=== PATIENT | female | born 1980 | race Caucasian/White ===

== ENCOUNTER 2018-04-23 00:27 | Emergency (ER) | payer OTHER ==
[2018-04-23 00:35] VITALS: TEMP 98.8
[2018-04-23] MEDS ORDERED: DIPH,PERTUS(ACELL)TETVAC-LF 0.5 ML VIAL IM ONE (01:03)
[2018-04-23] MEDS ORDERED: IBUPROFEN 600 MG TAB PO STA (01:03)
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
[2018-04-23] MEDS ORDERED: LIDOCAINE 1% INJ 10MG/ML (20 ML MDV) SQ ONE (02:40)
[2018-04-23 03:37] VITALS: BP 112/74; PULSE 76; RESP 16
== END 2018-04-23 03:37 | disposition home or self-care (01) ==
LOC: EC 00:27
DX: S01.01XA Laceration without foreign body of scalp, initial encounter (principal); S63.501A Unspecified sprain of right wrist, initial encounter; M54.2 Cervicalgia; E03.9 Hypothyroidism, unspecified; F31.9 Bipolar disorder, unspecified; F41.0 Panic disorder [episodic paroxysmal anxiety]; F43.10 Post-traumatic stress disorder, unspecified; F17.200 Nicotine dependence, unspecified, uncomplicated; Z53.29 Procedure and treatment not carried out because of patient's decision for other reasons; Z23 Encounter for immunization; Z79.899 Other long term (current) drug therapy; Z88.8 Allergy status to other drugs, medicaments and biological substances; Y09 Assault by unspecified means; Y92.009 Unspecified place in unspecified non-institutional (private) residence as the place of occurrence of the external cause
CPT/HCPCS: 70450; 72125; 90471; 90715; 99284

== ENCOUNTER 2021-01-03 02:50 | Emergency (ER) | payer OTHER ==
[2021-01-03 02:56] VITALS: BP 121/84; PULSE 116; RESP 18; TEMP 97.3
--- NOTE | 2021-01-03 03:00 | ED ---
Overdose HPI - General Chief Complaint: Overdose Stated Complaint: Overdose Time Seen by Provider: 01/03/21 02:59 Source: patient, EMS, RN notes reviewed, old records reviewed Mode of arrival: EMS Limitations: no limitations - History of Present Illness Initial Comments: This is a 40-year-old female DF for evaluation, patient brought in by EMS for opiate overdose requiring Narcan. Patient states she did snort heroin. She denies homicidal or suicidal thoughts. Denies any other drug or alcohol abuse. Boyfriend is at bedside MD Complaint: accidental overdose -: minutes(s) Intent: unwilling to say How Overdose Was Discovered: family/friend present at time Context: Intentional Overdose: drug/ETOH problems Context: Accidental Overdose: wanted to get high Treatments Prior to Arrival: narcan - Related Data Home Medications Medication Instructions Recorded Confirmed Gabapentin [Neurontin] 300 mg PO BID@0800,1400 06/01/17 06/01/17 Gabapentin [Neurontin] 600 mg PO HS 06/01/17 06/01/17 Levothyroxine Sodium [Synthroid] 75 mcg PO DAILY 06/01/17 06/01/17 QUEtiapine FUMARATE [SEROquel] 600 mg PO HS 06/01/17 06/01/17 busPIRone HCL 15 mg PO BID@0800,1400 06/01/17 06/01/17 busPIRone HCL 30 mg PO HS 06/01/17 06/01/17 Allergies Allergy/AdvReac Type Severity Reaction Status Date / Time carbamazepine [From Tegretol] Allergy Rash/Hives Verified 06/01/17 18:20 divalproex sodium Allergy Rash/Hives Verified 06/01/17 18:20 [From Depakote] Review of Systems ROS Statement: Those systems with pertinent positive or pertinent negative responses have been documented in the HPI. ROS Other: All systems not noted in ROS Statement are negative. Past Medical History Past Medical History: Asthma, Thyroid Disorder Additional Past Medical History / Comment(s): Hypothyroidism, vitamin D deficiency History of Any Multi-Drug Resistant Organisms: None Reported Past Surgical History: No Surgical Hx Reported Past Anesthesia/Blood Transfusion Reactions: No Reported Reaction Past Psychological History: Anxiety, Bipolar, Depression, Panic Disorder, PTSD Smoking Status: Current every day smoker Past Alcohol Use History: None Reported Past Drug Use History: Heroin, Marijuana - Past Family History Father Family Medical History: Hypertension Additional Family Medical History / Comment(s): Father is alive at age 56 with history of hypertension. Paternal grandmother had diabetes. Mother Additional Family Medical History / Comment(s): Mother is alive at age 55 with history of bipolar disorder with crack abuse and alcohol abuse. Brother(s) Additional Family Medical History / Comment(s): Patient has one brother with scoliosis. Patient has one sister that have some type of tumors but does not know details as she has not talked to her in 2 years. Patient has one son that is 17 years old and a daughter 20 years old. General Exam Limitations: no limitations General appearance: alert, in no apparent distress, anxious Head exam: Present: atraumatic, normocephalic, normal inspection Eye exam: Present: normal appearance, PERRL, EOMI. Absent: scleral icterus, conjunctival injection, periorbital swelling ENT exam: Present: normal exam, mucous membranes moist Neck exam: Present: normal inspection. Absent: tenderness, meningismus, lymphadenopathy Respiratory exam: Present: normal lung sounds bilaterally. Absent: respiratory distress, wheezes, rales, rhonchi, stridor Cardiovascular Exam: Present: normal rhythm, tachycardia, normal heart sounds. Absent: systolic murmur, diastolic murmur, rubs, gallop, clicks GI/Abdominal exam: Present: soft, normal bowel sounds. Absent: distended, tenderness, guarding, rebound, rigid Extremities exam: Present: normal inspection, full ROM, normal capillary refill. Absent: tenderness, pedal edema, joint swelling, calf tenderness Back exam: Present: normal inspection Neurological exam: Present: alert, oriented X3, CN II-XII intact Psychiatric exam: Present: normal affect, normal mood Skin exam: Present: warm, dry, intact, normal color. Absent: rash Course Vital Signs 01/03/21 02:51 Temperature 97.3 F L Pulse Rate 116 H Respiratory 18 Rate Blood Pressure 121/84 O2 Sat by Pulse 100 Oximetry - Reevaluation(s) Reevaluation #1: Medical record is reviewed Patient symptoms are improved here in the ER Patient is in no acute distress Patient informed results and questions answered Medical Decision Making - Medical Decision Making 40 female with opiate overdose. Patient awake and alert upon arrival. Patient can be discharged home Disposition Clinical Impression: Drug overdose, Poisoning by opiates and related narcotics, other Disposition: HOME SELF-CARE Condition: Fair Instructions (If sedation given, give patient instructions): Adult Overdose (ED) Is patient prescribed a controlled substance at d/c from ED?: No Referrals: Kathie Haile MD [Primary Care Provider] - 1-2 days
== END 2021-01-03 03:30 | disposition home or self-care (01) ==
LOC: EC 02:50
DX: T40.1X1A Poisoning by heroin, accidental (unintentional), initial encounter (principal); J45.909 Unspecified asthma, uncomplicated; E03.9 Hypothyroidism, unspecified; F31.9 Bipolar disorder, unspecified; F41.9 Anxiety disorder, unspecified; F12.90 Cannabis use, unspecified, uncomplicated; F17.200 Nicotine dependence, unspecified, uncomplicated; Z79.890 Hormone replacement therapy
CPT/HCPCS: 99284